=== PATIENT | male | born 1945 | race Caucasian/White ===

== ENCOUNTER 2022-02-02 06:01 | Inpatient (IN) | payer MEDICARE ==
[2022-01-30 10:37] LABS: BASOPHILS % 0.7 % (0.0-1.0); EOSINOPHILS # (AUTO) 0.2 (0.0-0.4); EOSINOPHILS % 4.2 % (0.0-6.0); HEMATOCRIT 42.7 % (38.2-49.6); HEMOGLOBIN 13.8 g/dL (14.0-18.0); LYMPHOCYTES # (AUTO) 0.8 (1.0-3.2); LYMPHOCYTES % 13.4 % (18.0-39.1); MEAN CORPUSCULAR HEMOGLOBIN 32.7 pg (28-32); MEAN CORPUSCULAR HGB CONC 32.3 g/dL (31-35); MEAN CORPUSCULAR VOLUME 101.2 fL (81-99); MONOCYTES # (AUTO) 0.6 (0.2-0.8); MONOCYTES % 10.8 % (4.4-11.3); NEUTROPHILS % 70.6 % (38.7-80.0); PLATELET COUNT 154 x10e3/uL (140-360); RED BLOOD COUNT 4.22 x10e6/uL (4.3-5.7); RED CELL DISTRIBUTION WIDTH 12.9 % (11.7-14.4)
[2022-01-30 11:19] LABS: CALCIUM 9.4 mg/dL (8.4-10.2); CREATININE, SERUM 1.2 mg/dL (0.72-1.25)
[~2022-02-02] VITALS: Ht 177.8 cm; Wt 97.5 kg
[2022-02-02] VITALS (7 sets, daily range): BP systolic 85–137; BP diastolic 65–95
[~2022-02-02 06:01] MED LIST: CEFTRIAXONE 1 GM VIAL ONE; COENZYME Q10100 M1 PO; ELIQUIS5 MG PO; FINASTERIDE5 MG PO; FLOMAX0.4 MG PO; GABAPENTIN300 MG PO; GENTAMICIN 80MG/NS 100 ML 200 ML IV ONE; SODIUM CHLORIDE 0.9% 1000ML 1,000 ML ONE; SODIUM CHLORIDE 0.9% 50ML 50 ML ONE; SPIRIVA18 MCG INH; SYMBICORT 16010.2 GM INH; TESTOSTERONE5 G1 TOP; ZESTRIL10 MG PO
[2022-02-02] MEDS ORDERED: IOPAMIDOL 300MG/ML 50ML INFUS..BTL IV ONE (06:21)
[2022-02-02] MEDS ORDERED: B&O 60MG R/S 60 MG SUPP PR ONE (06:40)
[2022-02-02] MEDS ORDERED: B&O 60MG R/S 60 MG SUPP PR PRN (07:30)
[2022-02-02] MEDS ORDERED: ONDANSETRON HCL INJ 2MG/ML 2ML 2 MG/ML VIAL IV PRN (07:30)
[2022-02-02] MEDS ORDERED: DIPHENHYDRAMINE HCL 25 MG CAP PO PRN (07:30)
[2022-02-02] MEDS ORDERED: PHENAZOPYRIDINE HCL 100 MG TAB PO PRN (07:30)
[2022-02-02] MEDS ORDERED: FENTANYL CITRATE/PF 100MCG/2 ML INJ ONE ×3 (08:57→16:52)
[2022-02-02 09:23] LABS: BASOPHILS % 0.3 % (0.0-1.0); EOSINOPHILS # (AUTO) 0.3 (0.0-0.4); EOSINOPHILS % 3.2 % (0.0-6.0); HEMATOCRIT 42.1 % (38.2-49.6); HEMOGLOBIN 13.5 g/dL (14.0-18.0); LYMPHOCYTES # (AUTO) 0.9 (1.0-3.2); LYMPHOCYTES % 10.8 % (18.0-39.1); MEAN CORPUSCULAR HEMOGLOBIN 32.7 pg (28-32); MEAN CORPUSCULAR HGB CONC 32.1 g/dL (31-35); MEAN CORPUSCULAR VOLUME 101.9 fL (81-99); MONOCYTES # (AUTO) 0.2 (0.2-0.8); MONOCYTES % 2.8 % (4.4-11.3); NEUTROPHILS # (AUTO) 7.2 (2.1-6.9); NEUTROPHILS % 82.4 % (38.7-80.0); PLATELET COUNT 144 x10e3/uL (140-360); RED BLOOD COUNT 4.13 x10e6/uL (4.3-5.7); RED CELL DISTRIBUTION WIDTH 13.1 % (11.7-14.4)
[2022-02-02 09:56] LABS: ANION GAP 12.1 mmol/L (8-16); CALCIUM 8.3 mg/dL (8.4-10.2); CREATININE, SERUM 1.18 mg/dL (0.72-1.25); POTASSIUM 5.1 mmol/L (3.5-5.1)
[2022-02-02] MEDS: ACETAMINOPHEN/CODEINE 300MG - 30MG TAB PO PRN ×2 (10:55→19:39)
[2022-02-02] MEDS: SODIUM CHLORIDE 0.9% 1000ML 1,000 ML IV SCH ×2 (10:55→20:31)
[2022-02-02] MEDS: DOCUSATE SODIUM 100 MG CAP PO SCH ×2 (12:04→16:37)
[2022-02-02] MEDS: CEFTRIAXONE 1 GM in SODIUM CHLORIDE 0.9% 50ML 50 ML IV SCH (12:04)
[2022-02-02] MEDS ORDERED: PROPOFOL IV EMULSION 10 MG/ML 20 ML VIAL ONE (12:29)
[2022-02-02] MEDS ORDERED: POVIDONE IODINE 0.05% 0.05 % ML PO ONE (12:29)
[2022-02-02] MEDS ORDERED: DEXAMETHASONE SOD PHOS INJ 4 MG/ML SDV ONE (12:29)
[2022-02-02] MEDS ORDERED: SEVOFLURANE INHAL SOLN 250 ML PEN BTL ONE (12:29)
[2022-02-02] MEDS ORDERED: ONDANSETRON HCL INJ 2MG/ML 2ML 2 MG/ML VIAL ONE (12:29)
[2022-02-02] MEDS ORDERED: LIDOCAINE HCL 2% LOCAL INJ 5 ML SDV VIAL INJ ONE (12:29)
[2022-02-02] MEDS ORDERED: ALBUTEROL/IPRATROPIUM 3 ML NEB NEB PRN (13:00)
[2022-02-02] MEDS ORDERED: MAGNESIUM SULFATE 2GM/50ML IV ONE (22:45)
[2022-02-02] MEDS ORDERED: TIOTROPIUM 18 MCG INH POWDER INH SCH (22:45)
[2022-02-03] VITALS (9 sets, daily range): BP systolic 95–124; BP diastolic 60–83
[2022-02-03 05:01] LABS: BASOPHILS % 0.1 % (0.0-1.0); EOSINOPHILS % 0.2 % (0.0-6.0); HEMATOCRIT 39.5 % (38.2-49.6); HEMOGLOBIN 12.7 g/dL (14.0-18.0); LYMPHOCYTES # (AUTO) 1.1 (1.0-3.2); LYMPHOCYTES % 7.9 % (18.0-39.1); MEAN CORPUSCULAR HEMOGLOBIN 32.5 pg (28-32); MEAN CORPUSCULAR HGB CONC 32.2 g/dL (31-35); MONOCYTES # (AUTO) 0.9 (0.2-0.8); MONOCYTES % 6.9 % (4.4-11.3); NEUTROPHILS # (AUTO) 11.2 (2.1-6.9); NEUTROPHILS % 84.4 % (38.7-80.0); PLATELET COUNT 133 x10e3/uL (140-360); RED BLOOD COUNT 3.91 x10e6/uL (4.3-5.7); RED CELL DISTRIBUTION WIDTH 13.1 % (11.7-14.4)
[2022-02-03 05:36] LABS: CALCIUM 8.1 mg/dL (8.4-10.2); CREATININE, SERUM 1.18 mg/dL (0.72-1.25)
[2022-02-03] MEDS: LISINOPRIL 10 MG TAB PO SCH ×2 (08:19→16:03)
[2022-02-03] MEDS: CEFTRIAXONE 1 GM in SODIUM CHLORIDE 0.9% 50ML 50 ML IV SCH (08:19)
[2022-02-03] MEDS: TAMSULOSIN HCL 0.4 MG CAP PO SCH (08:19)
[2022-02-03] MEDS: GABAPENTIN 300 MG CAP PO SCH ×3 (08:19→21:26)
[2022-02-03] MEDS: FINASTERIDE 5 MG TAB PO SCH (08:19)
[2022-02-03] MEDS: DOCUSATE SODIUM 100 MG CAP PO SCH ×2 (08:19→16:18)
[2022-02-03] MEDS: BUDESONIDE/FORMOTEROL 160/4.5MCG INHALER INH SCH ×2 (09:00→16:18)
[2022-02-03] MEDS: SODIUM CHLORIDE 0.9% 1000ML 1,000 ML IV SCH (10:37)
[2022-02-04] VITALS (8 sets, daily range): BP systolic 109–145; BP diastolic 74–99
[2022-02-04] MEDS: SODIUM CHLORIDE 0.9% 1000ML 1,000 ML IV SCH (00:50)
[2022-02-04 06:11] LABS: ANION GAP 11.4 mmol/L (8-16); CALCIUM 8.2 mg/dL (8.4-10.2); CREATININE, SERUM 1.04 mg/dL (0.72-1.25); POTASSIUM 4.4 mmol/L (3.5-5.1)
[2022-02-04 07:11] LABS: BASOPHILS % 0.4 % (0.0-1.0); EOSINOPHILS # (AUTO) 0.2 (0.0-0.4); EOSINOPHILS % 1.5 % (0.0-6.0); HEMATOCRIT 43.7 % (38.2-49.6); HEMOGLOBIN 13.9 g/dL (14.0-18.0); LYMPHOCYTES # (AUTO) 1.5 (1.0-3.2); LYMPHOCYTES % 14.6 % (18.0-39.1); MEAN CORPUSCULAR HEMOGLOBIN 32.9 pg (28-32); MEAN CORPUSCULAR HGB CONC 31.8 g/dL (31-35); MEAN CORPUSCULAR VOLUME 103.6 fL (81-99); MONOCYTES # (AUTO) 0.9 (0.2-0.8); MONOCYTES % 8.6 % (4.4-11.3); NEUTROPHILS # (AUTO) 7.4 (2.1-6.9); NEUTROPHILS % 74.3 % (38.7-80.0); RED BLOOD COUNT 4.22 x10e6/uL (4.3-5.7); RED CELL DISTRIBUTION WIDTH 13.2 % (11.7-14.4)
[2022-02-04 07:12] LABS: PLATELET COUNT 111 x10e3/uL (140-360)
[2022-02-04] MEDS: DOCUSATE SODIUM 100 MG CAP PO SCH ×2 (10:26→18:16)
[2022-02-04] MEDS: CEFTRIAXONE 1 GM in SODIUM CHLORIDE 0.9% 50ML 50 ML IV SCH (10:26)
[2022-02-04] MEDS: TAMSULOSIN HCL 0.4 MG CAP PO SCH (10:28)
[2022-02-04] MEDS: GABAPENTIN 300 MG CAP PO SCH ×3 (10:28→21:03)
[2022-02-04] MEDS: LISINOPRIL 10 MG TAB PO SCH ×2 (10:28→18:16)
[2022-02-04] MEDS: FINASTERIDE 5 MG TAB PO SCH (10:29)
[2022-02-05] VITALS: BP 134/96
[2022-02-05] MEDS: SODIUM CHLORIDE 0.9% 1000ML 1,000 ML IV SCH (01:50)
[2022-02-05 04:00] VITALS: BP 125/78
[2022-02-05 05:36] LABS: BASOPHILS % 0.3 % (0.0-1.0); EOSINOPHILS # (AUTO) 0.2 (0.0-0.4); EOSINOPHILS % 1.5 % (0.0-6.0); HEMOGLOBIN 12.5 g/dL (14.0-18.0); LYMPHOCYTES # (AUTO) 1.2 (1.0-3.2); LYMPHOCYTES % 11.6 % (18.0-39.1); MEAN CORPUSCULAR HEMOGLOBIN 32.6 pg (28-32); MEAN CORPUSCULAR HGB CONC 32.9 g/dL (31-35); MEAN CORPUSCULAR VOLUME 99.2 fL (81-99); MONOCYTES # (AUTO) 1.1 (0.2-0.8); MONOCYTES % 10.7 % (4.4-11.3); NEUTROPHILS # (AUTO) 7.8 (2.1-6.9); NEUTROPHILS % 75.2 % (38.7-80.0); PLATELET COUNT 141 x10e3/uL (140-360); RED BLOOD COUNT 3.83 x10e6/uL (4.3-5.7)
[2022-02-05 05:56] LABS: ANION GAP 10.6 mmol/L (8-16); CALCIUM 8.9 mg/dL (8.4-10.2); CREATININE, SERUM 0.97 mg/dL (0.72-1.25); POTASSIUM 4.6 mmol/L (3.5-5.1)
[2022-02-05 08:00] VITALS: BP 119/78
[2022-02-05] MEDS: DOCUSATE SODIUM 100 MG CAP PO SCH (09:44)
[2022-02-05] MEDS: CEFTRIAXONE 1 GM in SODIUM CHLORIDE 0.9% 50ML 50 ML IV SCH (09:44)
[2022-02-05] MEDS: LISINOPRIL 10 MG TAB PO SCH (09:45)
[2022-02-05] MEDS: TAMSULOSIN HCL 0.4 MG CAP PO SCH (09:45)
[2022-02-05] MEDS: GABAPENTIN 300 MG CAP PO SCH (09:46)
[2022-02-05] MEDS: FINASTERIDE 5 MG TAB PO SCH (09:46)
[2022-02-05 09:48] VITALS: BP 119/78
[2022-02-05 12:00] VITALS: BP 148/93
[2022-02-05] MEDS ORDERED: ONDANSETRON HCL 4 MG ORAL DISINTEGRATING TAB PO PRN (12:15)
[2022-02-05] MEDS ORDERED: AZO STANDARD95 MG PO (12:29)
== END 2022-02-05 13:23 | disposition home or self-care (01) | DRG 713 ==
LOC: OR 06:01 → PACU V 09:11 → MED/SURG 09:37
PROVIDERS: ADMIT Internal Medicine; ATTEND Internal Medicine
PROC: 0V508ZZ Destruction of Prostate, Via Natural or Artificial Opening Endoscopic (ICD-10-PCS; principal; 2022-02-02 07:08)
PROC: BT141ZZ Fluoroscopy of Kidneys, Ureters and Bladder using Low Osmolar Contrast (ICD-10-PCS; 2022-02-02 07:08)
DX: N40.1 Benign prostatic hyperplasia with lower urinary tract symptoms (principal); N13.8 Other obstructive and reflux uropathy; C61 Malignant neoplasm of prostate; R39.14 Feeling of incomplete bladder emptying; R33.8 Other retention of urine; E11.9 Type 2 diabetes mellitus without complications; I10 Essential (primary) hypertension; E78.5 Hyperlipidemia, unspecified; M19.90 Unspecified osteoarthritis, unspecified site; N52.9 Male erectile dysfunction, unspecified; R35.1 Nocturia; N39.41 Urge incontinence; E66.9 Obesity, unspecified; Z68.30 Body mass index [BMI] 30.0-30.9, adult; N50.0 Atrophy of testis; N18.9 Chronic kidney disease, unspecified; N32.81 Overactive bladder; Z20.822 Contact with and (suspected) exposure to COVID-19; Z86.73 Personal history of transient ischemic attack (TIA), and cerebral infarction without residual deficits; D72.829 Elevated white blood cell count, unspecified
CPT/HCPCS: 36415; 71046; 74420; 80048; 82948; 83735; 85025; 93005; 94799; C1758; J0696; J1100; J1580; J2001; J2405; J3010; J3475; J7030; U0002